=== PATIENT | male | born 1960 | race Two or more races ===

== ENCOUNTER 2017-10-19 06:18 | Emergency (ER) | payer MEDICAID ==
[~2017-10-19] VITALS: Ht 175.3 cm; Wt 92.3 kg
[2017-10-19 06:22] VITALS: BP 154/78
[2017-10-19] MEDS ORDERED: DEXAMETHASONE 4 MG TABLET ONE (07:55)
[2017-10-19] MEDS ORDERED: DEXAMETHASONE 4 MG TABLET PO ONE (08:00)
[2017-10-19 08:16] LABS: RAPID INFLUENZA A POSITIVE (Negative); RAPID INFLUENZA B Negative (Negative)
== END 2017-10-19 08:57 | disposition home or self-care (01) ==
LOC: ED 07:43
DX: J09.X2 Influenza due to identified novel influenza A virus with other respiratory manifestations (principal)
CPT/HCPCS: 71046; 87400; 99285